=== PATIENT | male | born 1930 | race Caucasian/White ===

== ENCOUNTER 2019-04-28 12:43 | Inpatient (IN) | payer OTHER, MEDICARE ==
[~2019-04-28] VITALS: Ht 175.3 cm; Wt 95.5 kg
[2019-04-28 13:26] LABS: BASO # 0.1 10^3/uL (0.0-0.2); BASO % 0.5 % (0.0-1.0); EOS # 0.1 10^3/uL (0.0-0.5); EOS % 1.2 % (0.0-3.0); HEMATOCRIT 45.9 % (42.0-52.0); HEMOGLOBIN 15.2 g/dl (13.5-17.5); LYMPH # 2.4 10^3/uL (1.5-5.0); LYMPH % 25.8 % (24.0-44.0); MEAN CORPUSCULAR HGB CONC 33.1 g/dl (32.0-36.5); MEAN CORPUSCULAR VOLUME 93.7 fl (80.0-96.0); MONO # 0.7 10^3/uL (0.0-0.8); MONO % 7.2 % (0.0-5.0); NEUTROPHILS % 64.6 % (36.0-66.0); PLATELET COUNT, AUTOMATED 268 10^3/uL (150-450); WHITE BLOOD COUNT 9.2 10^3/uL (4.0-10.0)
[2019-04-28 13:54] LABS: BLOOD UREA NITROGEN 25 MG/DL (7-18); CARBON DIOXIDE LEVEL 25 MEQ/L (21-32); CHLORIDE LEVEL 108 MEQ/L (98-107); CK-MB VALUE MASS 1.6 NG/ML (<3.6); CPK CREATINE PHOSPHOKINASE 60 U/L (39-308); CREATININE FOR GFR 1.33 MG/DL (0.70-1.30); GLOMERULAR FILTRATION RATE 54.1 (>35); GLUCOSE, FASTING 102 MG/DL (70-100); MB/CK RELATIVE INDEX 2.67 (< OR =4); POTASSIUM SERUM 4.2 MEQ/L (3.5-5.1); SODIUM LEVEL 140 MEQ/L (136-145); TROPONIN I < 0.02 NG/ML (< 0.10)
--- NOTE | 2019-04-28 14:05 | REP ---
Single view chest: 04/28/2019. Indication: Chest pain. Comparison: 05/06/2005. Findings: The lungs are clear. There is no pleural effusion or pneumothorax. Cardiomediastinal silhouette is unremarkable. Impression: Clear lungs. Electronically Signed by Angelito Vo DO 04/28/2019 01:56 P
[2019-04-28] MEDS ORDERED: NS 500 ML IV ONE (14:15)
[2019-04-28] MEDS ORDERED: TAMS1CAP17 PO (14:26)
[2019-04-28] MEDS ORDERED: LEVO88TA3 PO (14:26)
[2019-04-28] MEDS ORDERED: AMLO5TAB6 PO (14:26)
[2019-04-28] MEDS ORDERED: LISI-538 PO (14:26)
[2019-04-28] MEDS ORDERED: D3 H10002 PO (14:26)
[2019-04-28] MEDS ORDERED: ASPI81TA26 PO (14:37)
[2019-04-28] MEDS ORDERED: AMLO10TA5 PO (14:37)
[2019-04-28] MEDS ORDERED: TURM500C5 PO (14:37)
[2019-04-28] MEDS ORDERED: EXCETAB33 PO (14:38)
[2019-04-28] MEDS ORDERED: ACET-897 PO (14:38)
[2019-04-28] MEDS ORDERED: MUCI600T31 PO (14:38)
[2019-04-28] MEDS ORDERED: ISOVUE-370 76% 100ML VIAL (Q9967) As Ordered ONE (14:40)
--- NOTE | 2019-04-28 15:57 | REP ---
CT ANGIOGRAM CHEST: TECHNIQUE: Axial contrast enhanced images from the thoracic inlet to the upper abdomen using 100 mL Isovue 370 intravenous contrast material with multiplanar reformations. There is mild diffuse ectasia of the thoracic aorta without aneurysm. There is mild diffuse atherosclerotic calcification. There is no thoracic aortic aneurysm or dissection. Heart is normal in size. There is no evidence of pulmonary embolism. There is no pleural or pericardial effusion. There is no mediastinal, hilar, or chest wall lymphadenopathy. Scattered fibrotic changes are seen in both lungs. There is a nonspecific 5 mm nodule in the right upper lobe posteriorly on image 40. Diffuse degenerative changes are noted of the spine. IMPRESSION: No evidence of thoracic aortic aneurysm or dissection. No evidence of pulmonary embolism. 5 mm nodule right upper lobe. Followup CT of the chest may be obtained in 1 year. Electronically Signed by Jean Carlos Strong MD 04/30/2019 01:01 A
--- NOTE | 2019-04-28 16:08 | REP ---
CT ANGIOGRAM ABDOMEN: Axial images obtained following IV administration of 100 ml Isovue 370. Sagittal, coronal and 3D MIP reconstruction images performed. Mild atherosclerotic calcifications of the abdominal aorta without aneurysm or dissection. There is no adenopathy, free air or free fluid. No bowel wall thickening is seen. The liver, spleen, adrenals and pancreas are grossly unremarkable. Bilateral parapelvic cysts are noted of the kidneys. There are degenerative changes of the spine. IMPRESSION: No evidence of abdominal aortic aneurysm or dissection. Electronically Signed by Jean Carlos Strong MD 05/01/2019 10:03 A
[2019-04-28] MEDS ORDERED: MAALOX 30 ML SUSP *UDC PO PRN (16:30)
[2019-04-28] MEDS ORDERED: MOM 30ML SUSPENSION UDC PO PRN (16:30)
--- NOTE | 2019-04-28 16:43 | HPEPDOC ---
[facility] Medical History & Physical Date of Admission Apr 28, 2019 Date of Service: Apr 28, 2019 Attending Physician: A History and Physical Chief complaints Exertional dyspnea and lightheadedness HISTORY OF PRESENT ILLNESS: This is a 88-year-old male who has no significant medical history except for controlled hypertension, severe arthritis for which he takes aspirin twice daily. States that he has been having progressive exertional dyspnea over the last few weeks to a month. He also states that lately he has been feeling lightheaded whenever he is trying to walk around and has to sit down to catch his balance. The patient states that he has had multiple episodes in a day. He does not really remember what medications he takes and states that he lives with . He denies any headache. Denies any spinning around. Denies any blurry vision. He denies any episode, which induces this lightheadedness. The patient states that he has been having mild cough and has been sometimes bringing up spu rhoda, but that is not abnormal for him. The patient denies any fevers, any rigors, any chills. The patient denies any head injury or any sick contacts. The patient denies any palpitation or any chest pain. The patient denies any abdominal pain, any diarrhea, any nausea or any vomiting. PAST MEDICAL HISTORY: Severe arthritis, controlled hypertension PAST SURGICAL HISTORY: None FAMILY HISTORY: Noncontributory. SOCIAL HISTORY: Nonsmoker. No alcohol abuse. No drug abuse FAMILY HISTORY: Noncontributory. HOME MEDICATIONS: Updated ALLERGIES: No drug allergies REVIEW OF SYSTEMS: Pertinent positive findings as per HPI PHYSICAL EXAMINATION: GENERAL alert, oriented to time, place and person. Looks of stated age. HEENT: Normocephalic, atraumatic. NECK: No jugular venous distention. No cervical lymphadenopathy. Trachea is midline. Neck is supple. CHEST: Clear to auscultation bilaterally. No wheezes, rales, or rhonchi can be appreciated. CARDIOVASCULAR: S1, S2, regular rate and rhythm. No murmurs, clicks, or rubs can be appreciated. Possible S3 gallop ABDOMEN: Soft. It is actually relatively flat. There is no guarding, no peritoneal signs. Minimal tenderness. Positive bowel sounds. EXTREMITIES: Mild pedal edema LABORATORY DATA: As below EKG. Current EKG shows right bundle branch block with potential bigeminy. EKG was obtained by the ER physician from the [place] which also showed right bundle branch block. ASSESSMENT AND PLAN: 1. Exertional dyspnea. Under evaluation. The patient got an x-ray and CT scan of the chest which did not show any abnormality. Lungs are clear auscultation bilaterally. This could be related to cardiac etiology which is causing syncopal episode as well as dyspnea. He denies any orthopnea or PND. Will continue to monitor and if required supplemental oxygen. CT scan of the chest and x-ray already done. We will undergo cardiac evaluation to rule out potential causes of this exertional dyspnea. 2. Near-syncopal episode. The patient stated that he has had multiple near syncopal episodes. The patient has been on lisinopril, tamsulosin and amlodipine. This could be related to postural hypotension and that is the reason, I will get orthostatic signs. Also, 2-D echo will be done. The patient will be kept on telemetry monitoring to rule out any tachycardia and bradycardia arrhythmias. Electrolytes including magnesium have been ordered. Also, 2-D echo. Will rule out any VALVE abnormality, especially aortic stenosis causing near-syncopal episodes. Also, CT head will be ordered. 3. Abnormal EKG. Comparison of the previous EKG with this for only shows that there is bigeminy, but no ST changes. Initial troponins also have been negative. Will order one more troponin. Continue telemetry monitoring. 4. Arthritis. Will continue home aspirin. DVT prophylaxis with heparin Disposition unknown at this time Expected length of stay greater than 2 per night. Vital Signs Vital Signs Date Time Temp Pulse Resp B/P (MAP) Pulse Ox O2 Delivery O2 Flow Rate FiO2 04/28/19 15:38 97.8 04/28/19 15:30 72 18 135/77 (96) 94 Room Air Laboratory Data Labs 24H Laboratory Tests 2 04/28/19 13:11: Immature Granulocyte % (Auto) 0.7, Neutrophils (%) (Auto) 64.6, Lymphocytes (%) (Auto) 25.8, Monocytes (%) (Auto) 7.2H, Eosinophils (%) (Auto) 1.2, Basophils (%) (Auto) 0.5, Neutrophils # (Auto) 6.0, Lymphocytes # (Auto) 2.4, Monocytes # (Auto) 0.7, Eosinophils # (Auto) 0.1, Basophils # (Auto) 0.1, Nucleated Red Blood Cells % (auto) 0.0, D-Dimer, Quantitative 1585.07H, Anion Gap 7L, Glomerular Filtration Rate 54.1, Calcium Level 9.0, Total Creatine Kinase 60, Creatine Kinase MB 1.6, Creatine Kinase MB Relative Index 2.67, Troponin I < 0.02 CBC/BMP Laboratory Tests 04/28/19 13:11 Home Medications Scheduled Amlodipine Besylate (Amlodipine Besylate) 10 Mg Tablet, 5 MG PO DAILY Aspirin (Aspirin EC) 81 Mg Tablet.dr, 81 MG PO QHS Aspirin/Acetaminophen/Caffeine (Excedrin Migraine Caplet) 1 Each Tablet, 2 TAB- CAP PO BID Cholecalciferol (Vitamin D3) (Vitamin D3) 1,000 Unit Capsule, 1,000 UNIT PO BID Levothyroxine Sodium (Levothyroxine Sodium) 88 Mcg Tablet, 88 MCG PO DAILY Lisinopril (Lisinopril) 20 Mg Tablet, 10 MG PO DAILY Tamsulosin Hcl (Tamsulosin HCl) 0.4 Mg Capsule, 0.4 MG PO QHS Turmeric Root Extract (Turmeric) 538 Mg Capsule, 538 MG PO DAILY Scheduled PRN Guaifenesin (Mucinex) 600 Mg Tab.er.12h, 600 MG PO BID PRN for CHEST CONGESTION Allergies Coded Allergies: No Known Drug Allergies (Verified Allergy, Unknown, 04/28/19) A-FIB/CHADSVASC A-FIB History Current/History of A-Fib/PAF?: No Current PO Anticoag Therapy: No GURJIT LANGFORD MD Apr 28, 2019 16:35
--- NOTE | 2019-04-28 17:26 | ECGEPIP ---
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
--- NOTE | 2019-04-28 18:28 | REPVR ---
PROCEDURE INFORMATION: Exam: US Duplex Bilateral Extracranial Arteries Exam date and time: 04/28/2019 5:54 PM Clinical history: 88 years old, male; Dizziness; Additional info: Syncope TECHNIQUE: Imaging protocol: Real-time Duplex ultrasound scan of the bilateral carotid and vertebral arteries combining harmon scale, color Doppler and spectral waveform analysis. Bilateral exam. COMPARISON: No relevant prior studies available. FINDINGS: Right common carotid artery: Mild atherosclerosis distally. No occlusion. Waveforms are normal. Right internal carotid artery: Mild proximal atherosclerosis with less than 50% per NASCET criteria stenosis. Waveforms and velocities are normal. Right ICA/CCA ratio: Within normal limits. Right external carotid artery: Mild atherosclerotic disease at the origin. Right vertebral artery: Unremarkable. Antegrade flow Left common carotid artery: Mild atherosclerosis distally. No occlusion. Waveforms are normal. Left internal carotid artery: Mild proximal atherosclerosis with less than 50% per NASCET criteria stenosis. Waveforms and velocities are normal. Left ICA/CCA ratio: Within normal limits. Left external carotid artery: Mild atherosclerotic disease at the origin. Left vertebral artery: Unremarkable. Antegrade flow. IMPRESSION: Mild, less than 50% per SRU criteria proximal ICA stenosis bilaterally. COMMENT: Carotid Stenosis Reference using SRU criteria: Mild: less than 50% stenosis. ICA PSV is less than 125 cm/second and plaque or intimal thickening is visible. Moderate: 50-69% stenosis. ICA PSV is 125 to 230 cm/second and plaque is visible. Severe: 70-94% stenosis. ICA PSV is more than 230 cm/second and visible plaque and lumen narrowing are seen. Near occlusion: 95-99% stenosis. ICA PSV is variable and significant plaque and luminal narrowing are seen. Occluded: 100% stenosis. No flow identified. Electronically signed by: Jan Ball On 04/28/2019 18:28:12 PM
[2019-04-28] MEDS: ASPIRIN 81 MG ENTERIC TAB PO SCH (21:39)
[2019-04-28] MEDS: VITAMIN D 1,000 INTERNATIONAL UNITS TABLET PO SCH (21:39)
[2019-04-28] MEDS: TAMSULOSIN 0.4 MG CAP PO SCH (21:39)
[2019-04-28] MEDS: DOCUSATE SODIUM 100 MG CAP PO SCH (21:39)
[2019-04-28] MEDS: HEPARIN SOD (PORCINE) 5000 UNITS/ML VIAL SC SCH (21:39)
[2019-04-29] MEDS: LEVOTHYROXINE 88MCG TABLET (0.088 MG) PO SCH (06:19)
[2019-04-29 07:32] LABS: ALBUMIN 2.9 GM/DL (3.2-5.2); ALT/SGPT 19 U/L (12-78); BILIRUBIN,TOTAL 0.6 MG/DL (0.2-1.0); BLOOD UREA NITROGEN 21 MG/DL (7-18); CALCIUM LEVEL 8.9 MG/DL (8.8-10.2); CARBON DIOXIDE LEVEL 29 MEQ/L (21-32); CHLORIDE LEVEL 105 MEQ/L (98-107); CREATININE FOR GFR 1.09 MG/DL (0.70-1.30); GLOMERULAR FILTRATION RATE > 60.0 (>35); GLUCOSE, FASTING 103 MG/DL (70-100); MAGNESIUM LEVEL 2.1 MG/DL (1.8-2.4); POTASSIUM SERUM 4.1 MEQ/L (3.5-5.1); SODIUM LEVEL 140 MEQ/L (136-145); TOTAL PROTEIN 6.8 GM/DL (6.4-8.2)
--- NOTE | 2019-04-29 08:03 | ECGEPIP ---
[facility] Test Date: 2019-04-28 Pat Name: GRIS LINARES Department: Room: 01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
--- NOTE | 2019-04-29 09:17 | REP ---
CT brain: 04/29/2019. Indication: Syncope. Comparison: None. Technique: Unenhanced axial CT images of the brain were obtained from skull base to vertex. Findings: There is no acute intracranial hemorrhage, acute cortical infarction, mass effect or hydrocephalous. Age-related volume loss is present. There is no significant fluid within the visualized mastoid air cells. Anterior ethmoid air cell and inferior right frontal periosteal mucosal thickening is noted. Patchy areas of white matter hypoattenuation within the cerebral hemispheres is present most consistent with chronic small vessel disease. Impression: No acute intracranial process. Chronic age-related changes. Paranasal sinus mucosal disease. Electronically Signed by Angelito Vo DO 04/29/2019 09:07 A
[2019-04-29] MEDS: DOCUSATE SODIUM 100 MG CAP PO SCH ×2 (09:25→20:30)
[2019-04-29] MEDS: VITAMIN D 1,000 INTERNATIONAL UNITS TABLET PO SCH ×2 (09:25→20:30)
[2019-04-29] MEDS: HEPARIN SOD (PORCINE) 5000 UNITS/ML VIAL SC SCH ×2 (09:26→20:30)
[2019-04-29 12:00] VITALS: BP 112/65
--- NOTE | 2019-04-29 12:31 | IPNPDOC ---
Text Note Date of Service The patient was seen on 04/29/19. NOTE Patient was seen and examined this morning, no acute events overnight PHYSICAL EXAMINATION: GENERAL alert, oriented to time, place and person. Looks of stated age. HEENT: Normocephalic, atraumatic. NECK: No jugular venous distention. No cervical lymphadenopathy. Trachea is midline. Neck is supple. CHEST: Clear to auscultation bilaterally. No wheezes, rales, or rhonchi can be appreciated. CARDIOVASCULAR: S1, S2, regular rate and rhythm. No murmurs, clicks, or rubs can be appreciated. Possible S3 gallop ABDOMEN: Soft. It is actually relatively flat. There is no guarding, no peritoneal signs. Minimal tenderness. Positive bowel sounds. EXTREMITIES: Mild pedal edema LABORATORY DATA: As below EKG. Current EKG shows right bundle branch block with potential bigeminy. EKG was obtained by the ER physician from the [place] which also showed right bundle branch block. ASSESSMENT AND PLAN: 1. Exertional dyspnea. Under evaluation. The patient got an x-ray and CT scan of the chest which did not show any abnormality. Lungs are clear auscultation bilaterally. This could be related to cardiac etiology which is causing syncopal episode as well as dyspnea. He denies any orthopnea or PND. Will continue to monitor and if required supplemental oxygen. CT scan of the chest and x-ray already done. We will undergo cardiac evaluation to rule out potential causes of this exertional dyspnea. 2. Near-syncopal episode, likely secondary to persistent orthostatic hypotension. The patient stated that he has had multiple near syncopal episodes. The patient has been on lisinopril, tamsulosin and amlodipine. This could be related to postural hypotension and that is the reason, orthostatic signs are positive. Currently antihypertensive medications have been kept on hold Also, 2-D echo will be done. The patient will be kept on telemetry monitoring to rule out any tachycardia and bradycardia arrhythmias. Electrolytes including magnesium have been ordered. Also, 2-D echo. Will rule out any VALVE abnormality, especially aortic stenosis causing near-syncopal episodes. Also, CT head will be ordered, which is pending. 3. Abnormal EKG. Comparison of the previous EKG with this for only shows that there is bigeminy, but no ST changes. Initial troponins also have been negative. Will order one more troponin. Continue telemetry monitoring. 4. Arthritis. Will continue home aspirin. DVT prophylaxis with heparin Disposition unknown at this time VS,Keyla, I+O VSKeyla, I+O Laboratory Tests 04/28/19 13:11 04/29/19 06:42 Vital Signs Date Time Temp Pulse Resp B/P (MAP) Pulse Ox O2 Delivery O2 Flow Rate FiO2 04/29/19 10:03 91 85/51 (62) 04/29/19 09:15 20 96 Room Air 04/28/19 15:38 97.8 I&O- Last 24 Hours up to 6 AM 04/29/19 06:00 Intake Total 500 ml Balance 500 ml GURJIT LANGFORD MD Apr 29, 2019 12:31
[2019-04-29 14:00] VITALS: BP 128/68
[2019-04-29] MEDS: TAMSULOSIN 0.4 MG CAP PO SCH (20:30)
[2019-04-29] MEDS: ASPIRIN 81 MG ENTERIC TAB PO SCH (20:30)
--- NOTE | 2019-04-29 21:20 | ECHO ---
DATE OF PROCEDURE: 04/29/2019 DATE OF : 1930 AGE: 88 GENDER: Male. HEIGHT: 69 inches WEIGHT: 209 pounds BODY SURFACE AREA: 2.11 meters squared INPATIENT: 4 [place], room 4215 REFERRING PHYSICIAN: Dr. Vamsi Nelson INDICATION: Dyspnea. MEASUREMENTS: 2D Measurements: RV: 3.8 cm LV: 4.6 cm Septum: 1.3 cm Posterior wall: 1.2 cm Aortic root: 3.8 cm LA: 4.2 cm LVEF: 65% DOPPLER MEASUREMENTS: AV: 1.38 meters per second LVOT: 0.88 meters per second LVOT diameter: 2.5 cm MV-E: 67, A: 110, EA ratio: 0.6 Early mitral deceleration time: 243 milliseconds E-prime: 5.4, A prime: 9.8 (medial), E prime 8 (lateral) with average E/E prime ratio 10. Pulmonary capillary wedge pressure: 14.3 mmHg PV: 0.9 meters per second Pulmonary artery acceleration time: 102 milliseconds PASP: 33 mmHg IVC: 1.4 cm COMMENTS: Normal sinus rhythm with right bundle branch block. M-mode and two-dimensional echocardiography was performed with pulsed, continuous wave, color flow and tissue Doppler studies. Mild concentric left ventricular hypertrophy with normal wall motion. Mildly dilated left atrium with grade 1 left ventricular (LV) diastolic dysfunction and current estimated mean left atrial pressure upper limits of normal. Normal right heart chamber sizes and motion and estimated pulmonary arterial pressure only slightly increased. Normal inferior vena cava (IVC) size and collapse against an elevated central venous pressure. Mild aortic valvular sclerosis without functional abnormality. Slight thickening of the mitral annulus but normal leaflet thickness and excursion with no functional abnormality. Normal appearing tricuspid valve with no more than trace insufficiency. No apparent intracardiac mass or pericardial effusion.
[2019-04-29 22:00] VITALS: BP 127/80
[2019-04-30] MEDS: LEVOTHYROXINE 88MCG TABLET (0.088 MG) PO SCH (05:51)
[2019-04-30] MEDS: ACETAMINOPHEN TAB 650MG DOSE (2X325MG) PO PRN ×2 (05:55→17:44)
[2019-04-30 06:00] VITALS: BP_SYST 128; BP_SYST 135; BP_SYST 95; BP_DIAS 59; BP_DIAS 81; BP_DIAS 83
[2019-04-30] MEDS: VITAMIN D 1,000 INTERNATIONAL UNITS TABLET PO SCH ×2 (08:40→21:40)
[2019-04-30] MEDS: DOCUSATE SODIUM 100 MG CAP PO SCH ×2 (08:40→21:40)
[2019-04-30] MEDS: HEPARIN SOD (PORCINE) 5000 UNITS/ML VIAL SC SCH ×2 (08:41→21:40)
--- NOTE | 2019-04-30 10:30 | IPNPDOC ---
Text Note Date of Service The patient was seen on 04/30/19. NOTE Patient was seen and examined this morning, no acute events overnight PHYSICAL EXAMINATION: GENERAL alert, oriented to time, place and person. Looks of stated age. HEENT: Normocephalic, atraumatic. NECK: No jugular venous distention. No cervical lymphadenopathy. Trachea is midline. Neck is supple. CHEST: Clear to auscultation bilaterally. No wheezes, rales, or rhonchi can be appreciated. CARDIOVASCULAR: S1, S2, regular rate and rhythm. No murmurs, clicks, or rubs can be appreciated. Possible S3 gallop ABDOMEN: Soft. It is actually relatively flat. There is no guarding, no peritoneal signs. Minimal tenderness. Positive bowel sounds. EXTREMITIES: Mild pedal edema LABORATORY DATA: As below EKG. Current EKG shows right bundle branch block with potential bigeminy. EKG was obtained by the ER physician from the [place] which also showed right bundle branch block. ASSESSMENT AND PLAN: 1. Exertional dyspnea. Under evaluation. The patient got an x-ray and CT scan of the chest which did not show any abnormality. Lungs are clear auscultation bilaterally. This could be related to cardiac etiology which is causing syncopal episode as well as dyspnea. He denies any orthopnea or PND. Will continue to monitor and if required supplemental oxygen. CT scan of the chest and x-ray already done. 2-D echo evaluated and normal 2. Near-syncopal episode, likely secondary to persistent orthostatic hypotensio n. The patient stated that he has had multiple near syncopal episodes. The patient has been on lisinopril, tamsulosin and amlodipine. This could be related to postural hypotension and that is the reason, orthostatic signs are positive. The patient again had orthostatic signs. Positive this morning. Awaiting these medications Toprol and amlodipine to be out of his system and they will be discontinued on discharge. Also, cortisol a.m. has been ordered to rule out any adrenal insufficiency Currently antihypertensive medications have been kept on hold Also, 2-D echo did not show any acute abnormality 3. Abnormal EKG. Comparison of the previous EKG with this for only shows that there is bigeminy, but no ST changes. Initial troponins also have been negative. 4. Arthritis. Will continue home aspirin. DVT prophylaxis with heparin Disposition likely home in the next 24 hours VS,Fishbone, I+O VS, Fishbone, I+O Vital Signs Date Time Temp Pulse Resp B/P (MAP) Pulse Ox O2 Delivery O2 Flow Rate FiO2 04/30/19 06:00 97.2 73 18 128/81 (97) 96 Room Air I&O- Last 24 Hours up to 6 AM 04/30/19 06:00 Intake Total 1570 ml Balance 1570 ml GURJIT LANGFORD MD Apr 30, 2019 10:30
[2019-04-30 14:00] VITALS: BP 150/82
[2019-04-30 18:09] LABS: APPEARANCE, URINE CLOUDY (CLEAR); BACTERIA, URINE AUTO NEGATIVE (NEGATIVE); BILIRUBIN, URINE AUTO NEGATIVE (NEGATIVE); BLOOD, URINE BLOOD 1+ (NEGATIVE); COLOR, URINE YELLOW (YELLOW); GLUCOSE, URINE (UA) AUTO NEGATIVE (NEGATIVE); KETONE, URINE AUTO NEGATIVE (NEGATIVE); LEUKOCYTE ESTERASE, URINE AUTO 3+ (NEGATIVE); NITRITE, URINE AUTO NEGATIVE (NEGATIVE); PROTEIN, URINE AUTO 1+ mg/dL (NEGATIVE); RBC, URINE AUTO 14 /HPF (0-3); SPECIFIC GRAVITY URINE AUTO 1.015 (1.002-1.035); SQUAMOUS EPITHELIAL CELL UR AU 0 /HPF (0-6); UROBILINOGEN, URINE AUTO 0.2 mg/dL (0.0-2.0); WBC, URINE AUTO TNTC /HPF (0-3)
[2019-04-30] MEDS: TAMSULOSIN 0.4 MG CAP PO SCH (21:40)
[2019-04-30] MEDS: ASPIRIN 81 MG ENTERIC TAB PO SCH (21:40)
[2019-04-30 22:00] VITALS: BP 131/81
[2019-04-30 23:25] VITALS: BP_SYST 119; BP_SYST 142; BP_SYST 147; BP_DIAS 76; BP_DIAS 80; BP_DIAS 81
[2019-05-01 06:00] VITALS: BP 144/89
[2019-05-01 06:00] LABS: HEMATOCRIT 46.1 % (42.0-52.0); MEAN CORPUSCULAR HEMOGLOBIN 31.3 pg (27.0-33.0); MEAN CORPUSCULAR HGB CONC 32.5 g/dl (32.0-36.5); MEAN CORPUSCULAR VOLUME 96.2 fl (80.0-96.0); PLATELET COUNT, AUTOMATED 250 10^3/uL (150-450); RED BLOOD COUNT 4.79 10^6/uL (4.30-6.10); WHITE BLOOD COUNT 8.4 10^3/uL (4.0-10.0)
[2019-05-01 06:17] LABS: BLOOD UREA NITROGEN 24 MG/DL (7-18); CALCIUM LEVEL 9.1 MG/DL (8.8-10.2); CARBON DIOXIDE LEVEL 27 MEQ/L (21-32); CHLORIDE LEVEL 108 MEQ/L (98-107); CREATININE FOR GFR 1.08 MG/DL (0.70-1.30); GLOMERULAR FILTRATION RATE > 60.0 (>35); GLUCOSE, FASTING 100 MG/DL (70-100); SODIUM LEVEL 141 MEQ/L (136-145)
[2019-05-01] MEDS: LEVOTHYROXINE 88MCG TABLET (0.088 MG) PO SCH (06:22)
[2019-05-01 06:25] VITALS: BP_SYST 102; BP_SYST 122; BP_SYST 126; BP_DIAS 68; BP_DIAS 87; BP_DIAS 88
[2019-05-01] MEDS: ACETAMINOPHEN TAB 650MG DOSE (2X325MG) PO PRN (06:40)
[2019-05-01] MEDS: VITAMIN D 1,000 INTERNATIONAL UNITS TABLET PO SCH (08:05)
[2019-05-01] MEDS: DOCUSATE SODIUM 100 MG CAP PO SCH (08:05)
[2019-05-01] MEDS: HEPARIN SOD (PORCINE) 5000 UNITS/ML VIAL SC SCH (08:05)
--- NOTE | 2019-05-01 11:18 | DS.PDOC ---
Discharge Summary General Date of Admission Apr 28, 2019 at 16:27 Date of Discharge 05/01/19 Discharge Summary Chief complaints Exertional dyspnea and lightheadedness Final diagnosis Orthostatic hypotension Polypharmacy HISTORY OF PRESENT ILLNESS: This is a 88-year-old male who has no significant medical history except for controlled hypertension, severe arthritis for which he takes aspirin twice bob ly. States that he has been having progressive exertional dyspnea over the last few weeks to a month. He also states that lately he has been feeling lightheaded whenever he is trying to walk around and has to sit down to catch his balance. The patient states that he has had multiple episodes in a day. For his Exertional dyspnea. The patient got an x-ray and CT scan of the chest which did not show any abnormality. Lungs are clear auscultation bilaterally. CT scan of the chest and x-ray already done. 2-D echo evaluated and normal. For his Near- syncopal episode, likely secondary to persistent orthostatic hypotension. The patient stated that he has had multiple near syncopal episodes. The patient has been on lisinopril, tamsulosin and amlodipine. This could be related to postural hypotension and that is the reason, orthostatic signs are positive. The patient again had orthostatic signs. Positive yesterday morning. Now as these medications Toprol and amlodipine to be out of his system and they will be discontinued on discharge. Also, cortisol a.m.normal which ruled out any adrenal insufficiency. He has been advised that he has to dangle his legs down and give himself some time before getting up because he has orthostatic hypotension. If this continues, he probably might require active table test. He also has been advised that he is high risk of falls and should always use some help, especially a walker or somebody in the room and he is trying to get up. Extended into the daughter also and she's involved in the care. PHYSICAL EXAMINATION: GENERAL alert, oriented to time, place and person. Looks of stated age. HEENT: Normocephalic, atraumatic. NECK: No jugular venous distention. No cervical lymphadenopathy. Trachea is midline. Neck is supple. CHEST: Clear to auscultation bilaterally. No wheezes, rales, or rhonchi can be appreciated. CARDIOVASCULAR: S1, S2, regular rate and rhythm. No murmurs, clicks, or rubs can be appreciated. Possible S3 gallop ABDOMEN: Soft. It is actually relatively flat. There is no guarding, no peritoneal signs. Minimal tenderness. Positive bowel sounds. EXTREMITIES: Mild pedal edema Medications. As per discharge reconciliation medication list. This in upper and amlodipine have been discontinued Activity as tolerated Diet. 2 g sodium diet Follow-up appointments. PCP in 1 week, Condition on discharge. Patient is medically optimized for discharge Discharge disposition: Home Total time spent on this discharge including coordination of care, review of chart documentation and actual contact is around 35 minutes Vital Signs/I&Os Vital Signs Date Time Temp Pulse Resp B/P (MAP) Pulse Ox O2 Delivery O2 Flow Rate FiO2 05/01/19 06:25 73 122/87 (99) 78 126/88 (101) 84 102/68 (79) 05/01/19 06:00 97.0 18 96 Room Air I&O- Last 24 Hours up to 6 AM 05/01/19 05:59 Intake Total 1360 ml Output Total 200 ml Balance 1160 ml Laboratory Data Labs 24H Laboratory Tests 2 04/30/19 17:40: Urine Color YELLOW, Urine Appearance CLOUDYH, Urine pH 7.0, Urine Specific Gra vity 1.015, Urine Protein 1+H, Urine Glucose (Auto)(UA) NEGATIVE, Urine Ketones (Auto) NEGATIVE, Urine Blood 1+H, Urine Nitrite NEGATIVE, Urine Bilirubin NEGATIVE, Urine Urobilinogen 0.2, Urine Leukocyte Esterase (Auto) 3+H, Urine WBC (Auto) TNTCH, Urine RBC (Auto) 14H, Urine Hyaline Casts (Auto) 0, Urine Bacteria (Auto) NEGATIVE, Urine Squamous Epithelial Cells 0, Urine Sperm (Auto) 05/01/19 05:44: Nucleated Red Blood Cells % (auto) 0.0, Anion Gap 6L, Glomerular Filtration Rate > 60.0, Calcium Level 9.1 CBC/BMP Laboratory Tests 05/01/19 05:44 Microbiology Microbiology 04/29/19 Urine Culture, Received Pending Discharge Medications Scheduled Aspirin (Aspirin EC) 81 Mg Tablet.dr, 81 MG PO QHS, (Reported) Aspirin/Acetaminophen/Caffeine (Excedrin Migraine Caplet) 1 Each Tablet, 2 TAB- CAP PO BID, (Reported) Cholecalciferol (Vitamin D3) (Vitamin D3) 1,000 Unit Capsule, 1,000 UNIT PO BID, (Reported) Levothyroxine Sodium (Levothyroxine Sodium) 88 Mcg Tablet, 88 MCG PO DAILY, (Reported) Tamsulosin Hcl (Tamsulosin HCl) 0.4 Mg Capsule, 0.4 MG PO QHS, (Reported) Turmeric Root Extract (Turmeric) 538 Mg Capsule, 538 MG PO DAILY, (Reported) Scheduled PRN Guaifenesin (Mucinex) 600 Mg Tab.er.12h, 600 MG PO BID PRN for CHEST CONGESTION, (Reported) Allergies Coded Allergies: No Known Drug Allergies (Verified Allergy, Unknown, 04/28/19) GURJIT LANGFORD MD May 01, 2019 11:18
== END 2019-05-01 12:08 | disposition home or self-care (01) | DRG 312 ==
LOC: EDBD 12:43 → M ED 12:43 → M ED INP 16:27 → M MSPAV 04-29 11:13
PROVIDERS: ADMIT Internal Medicine; ATTEND Internal Medicine
DX: I95.1 Orthostatic hypotension (principal); R06.09 Other forms of dyspnea; M19.90 Unspecified osteoarthritis, unspecified site; Z79.82 Long term (current) use of aspirin; I10 Essential (primary) hypertension; Z79.899 Other long term (current) drug therapy; I45.10 Unspecified right bundle-branch block; Z91.81 History of falling; R94.31 Abnormal electrocardiogram [ECG] [EKG]; T50.905A Adverse effect of unspecified drugs, medicaments and biological substances, initial encounter